=== PATIENT | female | born 1970 | race Caucasian/White ===

== ENCOUNTER 2019-09-27 17:50 | Emergency (ER) | payer SELFPAY ==
[~2019-09-27] VITALS: Ht 162.6 cm; Wt 104.0 kg
[~2019-09-27 17:50] MED LIST: IBUP200T44 PO; LEVO50TA5 PO
[2019-09-27 18:20] VITALS: BP 156/55
--- NOTE | 2019-09-27 18:46 | PHYS DOC ---
Past History Past Medical History: GERD, Hypertension Past Surgical History: No Surgical History Alcohol Use: None Drug Use: None General Adult EDM: Chief Complaint: DENTAL PROBLEM HPI: HPI: 49-year-old female presents with dental pain. She has a large cavity in the left lower quadrant of her mouth. She now believes she has an exposed nerve root. The pain is been increasing the last few days. It is making it difficult for her to sleep. She was hoping we could find some way to dull the nerve or cover it. She denies fever chills. She has no other complaints. Review of Systems: Review of Systems: Constitutional: Denies fever or chills Eyes: Denies change in visual acuity HENT: Denies nasal congestion or sore throat. Dental pain Respiratory: Denies cough or shortness of breath Cardiovascular: Denies chest pain or edema GI: Denies abdominal pain, nausea, vomiting, bloody stools or diarrhea : Denies dysuria Musculoskeletal: Denies back pain or joint pain Integument: Denies rash Neurologic: Denies headache, focal weakness or sensory changes Endocrine: Denies polyuria or polydipsia Lymphatic: Denies swollen glands Psychiatric: Denies depression or anxiety Heart Score: Risk Factors: Risk Factors: DM, Current or recent (<one month) smoker, HTN, HLP, family history of CAD, obesity. Risk Scores: Score 0 - 3: 2.5% MACE over next 6 weeks - Discharge Home Score 4 - 6: 20.3% MACE over next 6 weeks - Admit for Clinical Observation Score 7 - 10: 72.7% MACE over next 6 weeks - Early Invasive Strategies Allergies: Allergies: Allergies Coded Allergies Type Severity Reaction Last Updated Verified No Known Drug Allergies 01/14/15 No Physical Exam: PE: Constitutional: Well developed, well nourished, no acute distress, non-toxic appearance. [] HENT: Normocephalic, atraumatic, bilateral external ears normal, oropharynx moist, no oral exudates, nose normal. Eroded left lower quadrant tooth with exposed nerve. Other diffuse cavities. [] Eyes: PERRLA, EOMI, conjunctiva normal, no discharge. [] Neck: Normal range of motion, no tenderness, supple, no stridor. [] Cardiovascular:Heart rate regular rhythm, no murmur [] Lungs & Thorax: Bilateral breath sounds clear to auscultation [] Abdomen: Bowel sounds normal, soft, no tenderness, no masses, no pulsatile masses. [] Skin: Warm, dry, no erythema, no rash. [] Back: No tenderness, no CVA tenderness. [] Extremities: No tenderness, no cyanosis, no clubbing, ROM intact, no edema. [] Neurologic: Alert and oriented X 3, normal motor function, normal sensory function, no focal deficits noted. [] Psychologic: Affect normal, judgement normal, mood normal. [] Current Patient Data: Vital Signs: Vital Signs Date Time Temp Pulse Resp B/P (MAP) Pulse Ox O2 Delivery O2 Flow Rate FiO2 09/27/19 18:20 98.1 76 18 156/55 (88) 98 Room Air EKG: EKG: [] Radiology/Procedures: Radiology/Procedures: [] Course & Med Decision Making: Course & Med Decision Making Pertinent Labs and Imaging studies reviewed. (See chart for details) We do not have dental putty for the patient. Was able to locate some at a local pharmacy. I will advise the patient go to the pharmacy to get this product. This should make a significant difference for her. It is a temporary solution until she get into a dentist. She is stable for discharge at this time. [] Dragon Disclaimer: Ziggy Disclaimer: This electronic medical record was generated, in whole or in part, using a voice recognition dictation system. Departure Departure: Impression: Primary Impression: Broken tooth Qualified Codes: S02.5XXA - Fracture of tooth (traumatic), initial encounter for closed fracture Disposition: HOME, SELF-CARE Condition: STABLE Referrals: PCP,NO (PCP) Patient Instructions: Dental Pain, [id number] Scripts Hydrocodone Bit/Acetaminophen (NORCO 5-325 TABLET) 1 Each Tablet 1 TAB PO PRN Q6HRS PRN for PAIN, #10 TAB 0 Refills Prov: AGNIESZKA ESCAMILLA DO 09/27/19 AGNIESZKA ESCAMILLA DO September 27, 2019 18:46
[2019-09-27] MEDS ORDERED: HYDR-3165 PO (18:51)
== END 2019-09-27 19:00 | disposition home or self-care (01) ==
LOC: ER 17:50
DX: S02.5XXA Fracture of tooth (traumatic), initial encounter for closed fracture (principal); K21.9 Gastro-esophageal reflux disease without esophagitis; I10 Essential (primary) hypertension; X58.XXXA Exposure to other specified factors, initial encounter; Y93.89 Activity, other specified; Y92.89 Other specified places as the place of occurrence of the external cause; Y99.8 Other external cause status
CPT/HCPCS: 99283

== ENCOUNTER → 2020-07-21 | Outpatient (CLI) | payer OTHER ==
[~2020-07-21] MED LIST changes: +HYDR-3165 PO
--- NOTE | 2020-07-21 11:27 | RAD ---
DATE: 07/21/2020 8:27 AM EXAM: DIGITAL SCREEN BILAT W/CAD HISTORY: Screening COMPARISON: 04/28/2015 Bilateral full field craniocaudal and mediolateral oblique images were obtained using digital technique. This study was interpreted with the benefit of Computerized Aided Detection (CAD). FINDINGS: Breast Density: SCATTERED The breast parenchyma shows scattered fibroglandular densities. Breast parenchyma level B No suspicious masses, microcalcifications or architectural distortion is present to suggest malignancy in either breast. The visualized axillae are unremarkable. IMPRESSION: No mammographic evidence of malignancy. BI-RADS CATEGORY: 1 NEGATIVE RECOMMENDED FOLLOW-UP: 12M 12 MONTH FOLLOW-UP Annual screening mammography is recommended, unless clinically indicated sooner based on symptoms or change in physical exam. PQRS compliance statement: Patient information was entered into a reminder system with a target due date for the next mammogram. Mammography is a sensitive method for finding small breast cancers, but it does not detect them all and is not a substitute for careful clinical examination. A negative mammogram does not negate a clinically suspicious finding and should not result in delay in biopsying a clinically suspicious abnormality. "Our facility is accredited by the [employer] Mammography Program."
== END ==
LOC: MAMMO 08:19
PROVIDERS: ATTEND Nurse Practitioner Family
DX: Z12.31 Encounter for screening mammogram for malignant neoplasm of breast (principal)
CPT/HCPCS: 77067

== ENCOUNTER 2020-11-09 15:17 | Emergency (ER) | payer SELFPAY ==
[~2020-11-09] VITALS: Ht 162.6 cm; Wt 103.6 kg
[2020-11-09] MEDS ORDERED: CYCLOBENZAPRINE 10 MG TABLET. PO ONE (15:45)
[2020-11-09] MEDS ORDERED: KETOROLAC 60 MG/2 ML VIAL. IM ONE (15:45)
[2020-11-09 16:15] LABS: BILIRUBIN,URINE NEG (NEG); CLARITY,URINE CLEAR; COLOR,URINE YELLOW; GLUCOSE,URINE NEG (NEG); NITRITE,URINE NEG (NEG); UROBILINOGEN,URINE 0.2 mg/dL (0.2 mg/dL)
[2020-11-09 16:19] LABS: BACTERIA,URINE FEW /HPF (0-FEW); SQUAMOUS EPITHELIAL CELL,UR MANY /LPF
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
[2020-11-09] MEDS ORDERED: CYCL-331 PO (17:29)
[2020-11-09] MEDS ORDERED: IBUP600T16 PO (17:29)
[2020-11-09 17:35] VITALS: BP 132/72
== END 2020-11-09 17:41 | disposition home or self-care (01) ==
LOC: ER 15:17
DX: S39.012A Strain of muscle, fascia and tendon of lower back, initial encounter (principal); S80.12XA Contusion of left lower leg, initial encounter; S80.11XA Contusion of right lower leg, initial encounter; S40.012A Contusion of left shoulder, initial encounter; S70.01XA Contusion of right hip, initial encounter; M19.90 Unspecified osteoarthritis, unspecified site; J45.909 Unspecified asthma, uncomplicated; F32.9 Major depressive disorder, single episode, unspecified; K21.9 Gastro-esophageal reflux disease without esophagitis; I10 Essential (primary) hypertension; V49.49XA Driver injured in collision with other motor vehicles in traffic accident, initial encounter; Y93.I9 Activity, other involving external motion; Y92.89 Other specified places as the place of occurrence of the external cause; Y99.8 Other external cause status
CPT/HCPCS: 81001; 96372; 99283; J1885

== ENCOUNTER 2021-05-11 14:45 | Emergency (ER) | payer OTHER ==
[~2021-05-11] VITALS: Ht 162.6 cm; Wt 106.8 kg
[~2021-05-11 14:45] MED LIST changes: +CYCL10TA19 PO; +IBUP600T16 PO
[2021-05-11] MEDS ORDERED: ASPIRIN CHEWABLE 81 MG TABLET. PO ONE (15:00)
--- NOTE | 2021-05-11 15:16 | EKG ---
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
--- NOTE | 2021-05-11 15:25 | RAD ---
INDICATION: Reason: CHEST PAIN, LEFT ARM PAIN / Spl. Instructions: / History: COMPARISON: None. FINDINGS: Single view of chest obtained. Mild interstitial opacities bilaterally. Cardiac silhouette unremarkable. IMPRESSION: * Mild interstitial opacities bilaterally. This could be secondary to interstitial infiltrate or mil d pulmonary vascular congestion. Electronically signed by: Francisco Gibson MD (05/11/2021 3:22 PM) [id number]
--- NOTE | 2021-05-11 15:30 | PHYS DOC ---
Past History Past Medical History: Arthritis, Asthma, Depression, GERD, Hypertension (EFRAIN BREEN APRN) Past Surgical History: Appendectomy, Tonsillectomy, Tubal ligation, Other Additional Past Surgical Histo: Left knee; Right knee; wisdom teeth removed (EFRAIN BREEN APRN) Alcohol Use: Rarely Drug Use: None (EFRAIN BREEN APRN) General Adult EDM: Chief Complaint: CHEST PAIN HPI: HPI: Patient is a 42-year-old female who presents to the emergency department for left upper chest pain that radiates into her left arm. Patient reports the pain started around 2:00 this afternoon. She rates it 2 out of 10. She describes as a sharp pressure pain. It is worse with movement of her arm. Patient took 81 mg of aspirin prior to arrival. Patient reports that she has a pinched nerve in her back and the pain in her chest is directly across from her back pain. Patient reports that when the pain occurred she had some lightheadedness. She denies any nausea, vomiting, shortness of breath, cough, fevers. Patient is currently on antibiotic for sinusitis. Patient has a history of arthritis, asthma, hypertension and GERD. (EFRAIN BREEN APRN) Review of Systems: Review of Systems: 14 body systems of the review of systems have been reviewed. See HPI for pertinent positive and negative responses, otherwise all other systems are negative, nonpertinent or noncontributory (EFRAIN BREEN APRN) Current Medications: Current Meds: Current Medications Medications (Trade) Dose Ordered Sig/Floresita Start Time Stop Time Status Last Admin Dose Admin Aspirin (Aspirin Chewable) 324 mg 1X ONCE 05/11/21 15:00 05/11/21 15:01 DC 05/11/21 15:24 243 MG (EFRAIN BREEN ASSOCIATE SALES REPRESENTATIVE) Allergies: Allergies: Allergies Coded Allergies Type Severity Reaction Last Updated Verified No Known Drug Allergies 05/11/21 No (EFRAIN BREEN APRN) Physical Exam: PE: Constitutional: Well developed, well nourished, no acute distress, non-toxic appearance. [] HENT: Normocephalic, atraumatic, bilateral external ears normal, oropharynx moist, no oral exudates, nose normal. [] Eyes: PERRLA, EOMI, conjunctiva normal, no discharge. [] Neck: Normal range of motion, no stridor Cardiovascular:Heart rate regular rhythm, no murmur, chest pain reproducible with palpation of left upper chest and shoulder [] Lungs & Thorax: Bilateral breath sounds clear to auscultation [] Abdomen: Bowel sounds normal, soft, no tenderness, no masses, no pulsatile masses. [] Skin: Warm, dry, no erythema, no rash. [] Back: Normal range of motion Extremities: No tenderness, no cyanosis, no clubbing, ROM intact, no edema. [] Neurologic: Alert and oriented X 3, normal motor function, normal sensory function, no focal deficits noted. [] Psychologic: Affect normal, judgement normal, mood normal. [] (EFRAIN BREEN APRN) Current Patient Data: Labs: Laboratory Tests Test 05/11/21 15:30 White Blood Count 8.4 x10^3/uL Red Blood Count 4.66 x10^6/uL Hemoglobin 12.9 g/dL Hematocrit 39.3 % Mean Corpuscular Volume 84 fL Mean Corpuscular Hemoglobin 28 pg Mean Corpuscular Hemoglobin Concent 33 g/dL Red Cell Distribution Width 15.3 % Platelet Count 261 x10^3/uL Neutrophils (%) (Auto) 63 % Lymphocytes (%) (Auto) 26 % Monocytes (%) (Auto) 8 % Eosinophils (%) (Auto) 2 % Basophils (%) (Auto) 1 % Neutrophils # (Auto) 5.3 x10^3uL Lymphocytes # (Auto) 2.2 x10^3/uL Monocytes # (Auto) 0.7 x10^3/uL Eosinophils # (Auto) 0.2 x10^3/uL Basophils # (Auto) 0.1 x10^3/uL Sodium Level 139 mmol/L Potassium Level 4.2 mmol/L Chloride Level 105 mmol/L Carbon Dioxide Level 24 mmol/L Anion Gap 10 Blood Urea Nitrogen 13 mg/dL Creatinine 0.8 mg/dL Estimated GFR (Cockcroft-Gault) 76.6 BUN/Creatinine Ratio 16 Glucose Level 92 mg/dL Calcium Level 9.0 mg/dL Total Bilirubin 0.2 mg/dL Aspartate Amino Transf (AST/SGOT) 28 U/L Alanine Aminotransferase (ALT/SGPT) 43 U/L Alkaline Phosphatase 78 U/L Troponin I High Sensitivity 5 ng/L Total Protein 7.5 g/dL Albumin 3.4 g/dL Albumin/Globulin Ratio 0.8 Current Medications Medications (Trade) Dose Ordered Sig/Floresita Route PRN Reason Start Time Stop Time Status Last Admin Dose Admin Aspirin (Aspirin Chewable) 324 mg 1X ONCE PO 05/11/21 15:00 05/11/21 15:01 DC 05/11/21 15:24 Fentanyl Citrate (Fentanyl 2ml Vial) 50 mcg 1X ONCE IVP 05/11/21 15:30 05/11/21 15:31 DC 05/11/21 15:40 Vital Signs: Vital Signs Date Time Temp Pulse Resp B/P (MAP) Pulse Ox O2 Delivery O2 Flow Rate FiO2 05/11/21 15:23 86 24 147/76 (99) 99 Room Air 05/11/21 14:49 97.7 (EFRAIN BREEN APRN) EKG: EKG: EKG performed by ER staff at 1440 shows sinus rhythm rate of 70, QTc 420, no STEMI read by Dr. Escamilla [id number] [] (EFRAIN BREEN APRN) Radiology/Procedures: Radiology/Procedures: []PROCEDURE: PORTABLE CHEST 1V INDICATION: Reason: CHEST PAIN, LEFT ARM PAIN / Spl. Instructions: / History: COMPARISON: None. FINDINGS: Single view of chest obtained. Mild interstitial opacities bilaterally. Cardiac silhouette unremarkable. IMPRESSION: * Mild interstitial opacities bilaterally. This could be secondary to int erstitial infiltrate or mild pulmonary vascular congestion. Electronically signed by: Thania Reyes MD (05/11/2021 3:22 PM) DESKTOP- [id number] DICTATED AND SIGNED BY: THANIA REYES MD DATE: 05/11/21 1521 CC: ATILIO POE; EFRAIN BREEN APRN ~MTH0 0 (EFRAIN BREEN APRN) Heart Score: C/O Chest Pain: Yes HEART Score for Chest Pain: HEART Score for Chest Pain Response (Comments) Value History Slighlty/Non-Suspicious 0 ECG Normal 0 Age >45 - < 65 1 Risk Factors 1 or 2 Risk Factors 1 Troponin < Normal Limit 0 Total 2 Risk Factors: Risk Factors: DM, Current or recent (<one month) smoker, HTN, HLP, family history of CAD, obesity. Risk Scores: Score 0 - 3: 2.5% MACE over next 6 weeks - Discharge Home Score 4 - 6: 20.3% MACE over next 6 weeks - Admit for Clinical Observation Score 7 - 10: 72.7% MACE over next 6 weeks - Early Invasive Strategies (EFRAIN BREEN APRN) Course & Med Decision Making: Course & Med Decision Making Pertinent Labs and Imaging studies reviewed. (See chart for details) [] Presents to the emergency department for left upper chest pain that radiates into her left arm that started around 2 PM. Patient is also reporting lighthea dedness with the chest pain. She states that the pain is worse with movement. It is reproducible. Patient reports that she has a pinched nerve in her back and pain in her chest is directly across from the pain in her back, she states that the pinched nerve in her back occurred 3 weeks ago when she was cleaning her house and she has been see by her PCP for her symptoms.. She states that when she raises her l. arm the pain goes away. Patient's risk factor is hypertension. Patient work-up in the ER consisted of blood work, EKG and chest x-ray. EKG is unremarkable. Blood work unremarkable. Patient's chest x-ray shows mild bilateral pleural opacities, patient be treated with antibiotic. I discussed patients findings with her and she states "do you think this is my anxiety". I discussed monitoring patient in ER and performing serial troponins in which she declined. Patient advised to take anti-inflammatory medications at home to follow-up with primary care provider. I discussed with patient all findings and diagnostic testing as well as the need to follow-up with PCP for further evaluation and treatment or return to the ER if any new or worsening symptoms. Strict return precautions were also discussed at length. Patient voiced understanding and agreement with the plan. Patient is hemodynamically stable at the time of disposition. (EFRAIN BREEN APRN) Dragon Disclaimer: Dragon Disclaimer: This electronic medical record was generated, in whole or in part, using a voice recognition dictation system. (EFRAIN BREEN APRN) Attending Co-Sign The patient was seen and interviewed as well as examined at the bedside. The chart was reviewed. The case was discussed. Agree with the plan of care. (AGNIESZKA ESCAMILLA DO) Departure Departure: Impression: Primary Impression: Chest wall pain Additional Impressions: Pneumonia Qualified Codes: J18.9 - Pneumonia, unspecified organism Person under investigation for COVID-19 Disposition: HOME / SELF CARE / HOMELESS Condition: GOOD Referrals: ATILIO POE (PCP) Patient Instructions: Chest Wall Pain, [id number], Pneumonia, Adult Additional Instructions: You were seen in the emergency department today for left chest pain. Your work- up in the ER was unremarkable. Your vital signs were stable. Your chest x-ray showed possible lower lobe pneumonia and this will be treated with antibiotic. Please start and finish the antibiotic completely. You are also tested in the emergency department for COVID-19 and you will be notified of those results when they become available in approximately 2 days, please self isolate until you receive these results. Your pain is likely musculoskeletal in nature, please take anti-inflammatory medications like ibuprofen or naproxen for your pain. Follow-up with your primary care provider tomorrow regarding your ER visit. Please return to the emergency department if you develop worsening of your pain, nausea, intractable vomiting, shortness of breath, high fevers refractory to treatment, severe weakness, palpitations or any new or worsening concerns. Scripts Azithromycin (AZITHROMYCIN TABLET) 250 Mg Tablet 1 PKG PO UD for pneumonia for 5 Days, #6 TAB 0 Refills 2 the first day followed by 1 for days 2-5 Prov: EFRAIN BREEN APRN 05/11/21 EFRAIN BREEN APRN May 11, 2021 15:30 AGNIESZKA ESCAMILLA DO May 12, 2021 11:55
[2021-05-11 16:00] LABS: BASO # 0.1 x10^3/uL (0.0-0.2); BASO % 1 % (0-3); EOS # 0.2 x10^3/uL (0.0-0.7); EOS % 2 % (0-3); HEMATOCRIT 39.3 % (36.0-47.0); HEMOGLOBIN 12.9 g/dL (12.0-15.5); LYMPH # 2.2 x10^3/uL (1.0-4.8); LYMPH % 26 % (24-48); MEAN CORPUSCULAR HEMOGLOBIN 28 pg (25-35); MEAN CORPUSCULAR HGB CONC 33 g/dL (31-37); MEAN CORPUSCULAR VOLUME 84 fL (79-100); MONO # 0.7 x10^3/uL (0.0-1.1); MONO % 8 % (0-9); NEUT # 5.3 x10^3uL (1.8-7.7); NEUT % 63 % (31-73); PLATELET COUNT 261 x10^3/uL (140-400); RED BLOOD COUNT 4.66 x10^6/uL (3.50-5.40); RED CELL DISTRIBUTION WIDTH 15.3 % (11.5-14.5); WHITE BLOOD COUNT 8.4 x10^3/uL (4.0-11.0)
[2021-05-11 16:06] LABS: CREATININE 0.8 mg/dL (0.6-1.0); GFR 76.6; POTASSIUM 4.2 mmol/L (3.5-5.1)
[2021-05-11 16:13] LABS: ALBUMIN 3.4 g/dL (3.4-5.0); ALBUMIN/GLOBULIN RATIO 0.8 (1.0-1.7); TOTAL BILIRUBIN 0.2 mg/dL (0.2-1.0); TOTAL PROTEIN 7.5 g/dL (6.4-8.2)
[2021-05-11] MEDS ORDERED: AZIT250T6 PO ×2 (16:53→18:05)
[2021-05-11] MEDS ORDERED: ORPHENADRINE CITRATE 60 MG/2 ML VIAL. IM ONE (17:00)
--- NOTE | 2021-05-11 17:07 | EKG ---
[address] [address] Test Date: 2021-05-11 Test Time: 16:20:47 Pat Name: JOSE RICHARDS Department: Room: Gender: F Survey Superintendent: WIL : 1970 Requested By: EFRAIN BREEN Order Number: [id number] Reading MD: Measurements Intervals [place] Rate: 87 P: 54 AL: 156 QRS: -41 QRSD: 86 T: 109 QT: 386 QTc: 465 Interpretive Statements SINUS RHYTHM ABNORMAL LEFT AXIS DEVIATION R-S TRANSITION ZONE IN V LEADS DISPLACED TO THE LEFT QRS(T) CONTOUR ABNORMALITY CONSIDER INFERIOR MYOCARDIAL DAMAGE T ABNORMALITY IN HIGH LATERAL LEADS ABNORMAL ECG RI6.02 No previous ECG available for comparison
[2021-05-11 17:31] VITALS: BP 170/78
== END 2021-05-11 17:50 | disposition home or self-care (01) ==
LOC: ER 14:45
DX: R07.89 Other chest pain (principal); M79.602 Pain in left arm; Z90.89 Acquired absence of other organs; Z98.51 Tubal ligation status; Z20.822 Contact with and (suspected) exposure to COVID-19
CPT/HCPCS: 36415; 71045; 80053; 84484; 85025; 93005; 96372; 96374; 99285; C9803; J2360; J3010; U0003